=== PATIENT | female | born 1945 | race Caucasian/White ===

== ENCOUNTER → 2019-02-17 | Outpatient (CLI) | payer OTHER, BC ==
[~2019-02-17] MED LIST: ACYCLOVIR 400400 MG PO; ALBUTEROL SULFATE INH; AXERT12.5 MG PO; B12; BACTRIM DS TAB1 EACH PO; CHOLESTYRAMINE P4 GM PO; COLACE100 MG PO; COUMADIN 4 MG TA4 M1 PO; CYMBALTA60 MG PO; LASIX 40 MG TAB40 M2 PO; MUCINEX TA600 MG/TA2 PO; NEURONTIN600 MG PO; NEXIUM40 MG PO; POTASSIUM20 PO; PREDNISONE 5 MG5 MG PO; PREMPRO 0.3 MG1 EACH PO; SIMETHICON CHEW80 M1 PO; SUPHEDRINE30 MG PO; TOPAMAX 25 MG T25 M1 PO; TRAMADOL 50 MG50 MG PO; TYLENOL325 MG PO; [UNRECOGNIZED DRUG - OTHER] PO
== END | disposition home or self-care (01) ==
LOC: SJCVC 15:37
DX: I48.0 Paroxysmal atrial fibrillation (principal); I42.9 Cardiomyopathy, unspecified; E78.00 Pure hypercholesterolemia, unspecified; I27.20 Pulmonary hypertension, unspecified; N18.3 Chronic kidney disease, stage 3 (moderate); D68.59 Other primary thrombophilia; I38 Endocarditis, valve unspecified; Z79.01 Long term (current) use of anticoagulants; Z79.899 Other long term (current) drug therapy; Z90.49 Acquired absence of other specified parts of digestive tract

== ENCOUNTER → 2019-11-01 | Outpatient (CLI) | payer OTHER, BC | LOC: SJCVCIMAG 13:07 | PROVIDERS: ATTEND Internal Medicine Cardiovascular Disease | DX: I08.2 Rheumatic disorders of both aortic and tricuspid valves (principal); I11.9 Hypertensive heart disease without heart failure; I49.3 Ventricular premature depolarization; I48.91 Unspecified atrial fibrillation; C85.90 Non-Hodgkin lymphoma, unspecified, unspecified site; E78.00 Pure hypercholesterolemia, unspecified; D68.59 Other primary thrombophilia; Z79.899 Other long term (current) drug therapy ==

== ENCOUNTER → 2020-07-27 | Outpatient (CLI) | payer OTHER, BC | LOC: SJCVC 14:05 | PROVIDERS: ATTEND Internal Medicine Cardiovascular Disease | DX: R94.31 Abnormal electrocardiogram [ECG] [EKG] (principal); C85.90 Non-Hodgkin lymphoma, unspecified, unspecified site; I48.91 Unspecified atrial fibrillation; I10 Essential (primary) hypertension; E78.00 Pure hypercholesterolemia, unspecified; D68.59 Other primary thrombophilia; I38 Endocarditis, valve unspecified; G47.33 Obstructive sleep apnea (adult) (pediatric); Z72.89 Other problems related to lifestyle; Z79.899 Other long term (current) drug therapy ==

== ENCOUNTER → 2021-01-15 | Outpatient (CLI) | payer OTHER, BC | END | disposition home or self-care (01) | LOC: SJCVCIMAG 13:31 | PROVIDERS: ATTEND Internal Medicine Cardiovascular Disease | DX: I48.91 Unspecified atrial fibrillation (principal); I08.1 Rheumatic disorders of both mitral and tricuspid valves; I10 Essential (primary) hypertension; I42.9 Cardiomyopathy, unspecified; E78.00 Pure hypercholesterolemia, unspecified; J44.9 Chronic obstructive pulmonary disease, unspecified; D68.59 Other primary thrombophilia; C85.90 Non-Hodgkin lymphoma, unspecified, unspecified site; Z98.890 Other specified postprocedural states; Z90.49 Acquired absence of other specified parts of digestive tract; Z79.899 Other long term (current) drug therapy ==